=== PATIENT | male | born 1930 | race Caucasian/White ===

== ENCOUNTER 2016-04-06 19:16 | Inpatient (IN) | payer MEDICARE, OTHER ==
--- NOTE | ~2016-04-06 | CR72 ---
[facility] A Service of [facility] RADIOLOGY TEXT RESULTS PATIENT: FELISHA GODFREY LOCATION: [address] : [birth year] UNIT #: [id number] AGE: [address]: Leah Bledsoe MD SEX: M ORDER DR: [id number] [facility] [address] [facility]. [place], [place] [address] [id number] I MR#: [id number] Acc #: [id number] NAME: FELISHA GODFREY. : 1930 SEX: M STUDY DATE/TIME: 04/10/2016 5:17 UNIT: [facility] ROOM: [facility] STUDY DESCRIPTION: CR Chest Single View Portable Attending Physician: Leah Bledsoe M.D. Ordering Physician: Oswaldo Raman M.D. Primary Care Physician: Shankar Lang M.D. MEDICAL IMAGING REPORT This report is preliminary unless electronic signature is present EXAM Portable chest. HISTORY Shortness of breath with acute respiratory failure. COMPARISON 04/09/2016 TECHNIQUE A single AP view of the chest was obtained. FINDINGS Tubes and supporting devices are in satisfactory position. The heart and mediastinum are stable. Extensive bilateral interstitial infiltrates are again seen, worst at the left base. No new infiltrates are noted since the previous exam. The left upper lung alcocer show slight improvement. IMPRESSION Bilateral infiltrates are again noted. There is slight improvement in the left suprahilar area. Infiltrates elsewhere are unchanged. Dictated by... Carrington Wilson M.D. THIS IS AN ELECTRONICALLY VERIFIED REPORT Carrington Wilson M.D. at 04/10/2016 3:26 PM RLF/cecil TD: 04/10/2016 09:52 JOB #: [id number] [facility] A Service of [facility] RADIOLOGY TEXT RESULTS PATIENT: FELISHA GODFREY LOCATION: [address] : [birth year] UNIT #: [id number] AGE: [address]: Leah Bledsoe MD SEX: M ORDER DR: MEDICAL IMAGING REPORT COPY
--- NOTE | ~2016-04-06 | EKG ---
PATIENT: FELISHA GODFREY UNIT #: [id number] Ventricular Rate: 160 BPM Atrial Rate: 182 BPM QRS Duration: 90 ms Q-T Interval: 238 ms QTC Calculation(Bezet): 388 ms Calculated R [place]: 37 degrees Calculated T [place]uffin: 150 degrees Diagnosis Line: Atrial fibrillation with rapid ventricular Diagnosis Line: response with premature ventricular or aberrantly Diagnosis Line: conducted complexes Diagnosis Line: ST and T wave abnormality, consider lateral ischemia Diagnosis Line: Abnormal ECG Diagnosis Line: No previous ECGs available Diagnosis Line: Confirmed by LOGAN MOREIRA MD ([id number]) on Diagnosis Line: 04/07/2016 11:55:27 AM INTERPRETING MD: MERLE
--- NOTE | ~2016-04-06 | US140 ---
[facility] A Service of [facility] RADIOLOGY TEXT RESULTS PATIENT: FELISHA GODFREY LOCATION: [address]04[address]26 : [birth year] UNIT #: [id number] AGE: [address]: Leah Bledsoe MD SEX: M ORDER DR: [id number] [facility] [address] [facility] [place], [place] [address] [id number] I MR#: [id number] Acc #: [id number] NAME: FELISHA GODFREY. : 1930 SEX: M STUDY DATE/TIME: 04/09/2016 22:21 UNIT: [facility] ROOM: [facility] STUDY DESCRIPTION: [facility] Veins Unilat or Ltd Stdy Attending Physician: Leah Bledsoe M.D. Ordering Physician: Kajal Botello M.D. Primary Care Physician: Shankar Lang M.D. MEDICAL IMAGING REPORT This report is preliminary unless electronic signature is present EXAM Right upper extremity venous duplex HISTORY Right upper extremity swelling x 2 days. Currently on blood thinner. Shunt in the right upper extremity. Dialysis performed today. Patient bleeding. FINDINGS There is phasic spontaneous flow with respiration seen at the right internal jugular, subclavian, axillary, deep brachial, superficial brachial, proximal cephalic, distal cephalic, basilic veins. There is also compressibility of vein lumen of all of the aforementioned vessels. The right AV graft shunt is visualized, and is patent. IMPRESSION There is no evidence of a right upper extremity DVT on today's exam. Dictated by... Francis Penn M.D. THIS IS AN ELECTRONICALLY VERIFIED REPORT Francis Penn M.D. at 04/14/2016 8:11 AM MAYRA/betsy TD: 04/10/2016 23:00 JOB #: [id number] MEDICAL IMAGING REPORT [facility] A Service [facility] RADIOLOGY TEXT RESULTS PATIENT: FELISHA GODFREY LOCATION: [facility]04-26 : [birth year] UNIT #: [id number] AGE: [address]: Leah Bledsoe MD SEX: M ORDER DR: COPY
--- NOTE | ~2016-04-06 | OR ---
Unit #: [id number] #: [id number] Patient: FELISHA GODFREY [id number] [address] [address] [id number] I MR#: [id number] NAME: FELISHA GODFREY ROOM: [facility] Date of Procedure: 04/08/2016 Admission Date: 04/06/2016 Surgeon: Rayray Raman M.D. : 1930 Attending Physician: Leah Bledsoe M.D. Primary Care Physician: Shankar Lang M.D. PROCEDURE OPERATIVE NOTE PROCEDURE PERFORMED Diagnostic bronchoscopy with bronchial washing from the left lower lobe. INDICATION FOR PROCEDURE Flu, pneumonia and respiratory failure. PREMEDICATION 1. The patient is on Fentanyl drip. 2. Versed 2 mg IV times one. COMPLICATION None. FINDINGS A moderate amount of yellowish secretion in the right upper lobe and lingula. DESCRIPTION OF THE PROCEDURE An informed consent was obtained from the patient's after explaining the benefit and risk of this procedure. The patient was prepped and positioned in a proper way. Then, the bronchoscope was advanced through the ET tube and, at the level of the darwin, 1% lidocaine was instilled and the bronchoscope was advanced into the right main bronchus and the right upper lobe, right middle lobe and right lower lobe were examined which appeared normal except for a moderate amount of secretion in the right upper lobe which was aspirated with lavage. Then the bronchoscope was retracted and then (1) in the left main bronchus and the left upper lobe, lingula and left lower lobe were examined. The patient had only a moderate amount of also secretion in the lingula which was lavaged. Then, the bronchoscope was wedged at the level of the left lower lobe and washing was obtained which will be sent for microbiology and cytology. The patient tolerated his procedure well with no immediate complication. Dictated by... Rayray Raman M.D. EA/cruz TD: 04/08/2016 11:32 Unit #: [id number] #: [id number] Patient: FELISHA GODFREY JOB #: [id number] PROCEDURE OPERATIVE NOTE X RAYRAY CASTRO MD PROCEDURE OPERATIVE NOTE
--- NOTE | ~2016-04-06 | CO ---
Unit #: [id number] #: [id number] Patient: FELISHA GODFREY L [id number] [address] [address] [id number] I MR#: [id number] NAME: FELISHA GODFREY ROOM: [facility] Age: 85 Sex: M Admission Date: 04/06/2016 : 1930 Attending Physician: Leah Bledsoe M.D. Primary Care Physician: Shankar Lang M.D. Consultation Date: 04/08/2016 CONSULTATION REPORT REASON FOR CONSULTATION AFib with RVR, as well as pacemaker not capturing properly. HISTORY OF PRESENT ILLNESS The patient is intubated and sedated on the ventilator and there is no family present at the bedside to obtain any information from it at this time, therefore information was obtained from chart review and the medical records. The patient is an 85 white male who presented to the [facility] ED 04/06/2016 with complaints of shortness of breath. According to the records, the patient began with some sinus congestion and upper respiratory cold type symptoms for a couple of days. He then developed a cough and was started on antibiotics at home, but did not improve. He was seen by his home healthcare provider today for evaluation and the patient was noted to be febrile and he was instructed to come to the ER for further evaluation. In the ER the patient was noted to be hypoxic and ultimately needed to be intubated. There is some mention that the patient has had CABG surgery and stenting of coronary arteries as well, but there are no records available at this time for review. The patient's family apparently told the admitting physician that the other medical history the patient has is end stage renal disease and atrial fibrillation. PAST SURGICAL HISTORY 1. CABG. 2. Pacemaker. 3. Knee surgery. 4. Hip surgery. 5. Liver resection. SOCIAL HISTORY The patient's family states that he is a nonsmoker. No alcohol or illicit drug use. ALLERGIES No known allergies. HOME MEDICATIONS 1. Calcium acetate 660 p.o. t.i.d. 2. Calcium carbonate 1 tab p.o. daily. 3. Imdur 30 mg p.o. daily. 4. Plavix 75 mg p.o. daily. 5. Protonix 40 mg daily. 6. Vitamin D2 50,000 units weekly. 7. Toprol XL 12.5 mg p.o. daily. Unit #: [id number] #: [id number] Patient: FELISHA GODFREY 8. Aspirin 81 mg p.o. daily. FAMILY HISTORY Not obtained. REVIEW OF SYSTEMS See HPI. PHYSICAL EXAMINATION GENERAL: This physical exam was completed by Dr. Alfonso and therefore, I am purely dictating his findings. Telemetry shows AFib. NECK: No JVD. CHEST: Fine rhonchi at the right base, left lung is clear. HEART: Heart size is normal. Sounds from aortic valve are normal. A grade 1/6 systolic murmur. ABDOMEN: Soft, bowel sounds positive, nontender and nondistended. EXTREMITIES: No leg edema. DIAGNOSTIC STUDIES CARDIOLOGY STUDIES: EKG that shows AFib with an old inferior CO. IMAGING STUDIES: Chest x-ray - increased interstitial markings left lower lobe infiltrate. LABORATORY STUDIES: Blood culture - no growth after 24 hours. Lactic of 3.3. Urine culture no growth after 24 hours. MRSA screen was negative. BMP - sodium showed 138, potassium 4.8, chloride 107, CO2 17, glucose 150, BUN 34, creatinine 5.1. White count 6.8, hemoglobin 11.5, hematocrit 35.4, platelets 108. Strep pneumo antigen in the urine was negative. Legionella of the urine was negative. Influenza A and B, positive A, negative for influenza B. BNP of 737. Troponin of 0.19, then 0.16. IMPRESSION 1. Acute respiratory failure. 2. Left lower lobe pneumonia. 3. Mild fluid overload. 4. AFib, rate controlled. 5. Status post pacemaker. 6. EF of 55%. 7. Moderate pulmonary hypertension. 8. Chronic kidney disease on hemodialysis. PLAN For now, patient's heart rate is controlled as patient seemed to repeat with a Fentanyl bolus to control pain. Patient is also noted to be on some levophed due to some hypotension. Will try to titrate the Levophed off to keep a systolic blood pressure greater than 100. Will check a BNP to evaluate fluid balance. Nursing staff to call for results. Further recommendations pending current workup. Again please note that this was purely dictated for Dr. Naveed Alfonso, as I did not see the patient or evaluate the patient myself. Dictated by... Lillian Samuels APRN for Naveed Alfonso M.D. Unit #: [id number] #: [id number] Patient: FELISHA GODFREY/purnima TD: 04/09/2016 11:10 JOB #: [id number] CONSULTATION REPORT X X CONSULTATION REPORT
--- NOTE | ~2016-04-06 | HP ---
Unit #: [id number] #: [id number] Patient: FELISHA GODFREY [id number] [address] [address] [id number] I MR#: [id number] NAME: FELISHA GODFREY. ROOM: [facility] Age: 85 Sex: M Admission Date: 04/06/2016 : 1930 Attending Physician: Cesar Sierra M.D. Primary Care Physician: Shankar Lang M.D. HISTORY AND PHYSICAL CHIEF COMPLAINT Shortness of breath. HISTORY OF PRESENT ILLNESS The patient is an 85-year-old male who presents to [facility] emergency department with some shortness of breath. Apparently the patient began with some sinus congestion and some upper respiratory cold type symptoms a couple of days ago. He developed cough. He was started on antibiotics at home but failed to improve. He was seen today by his medical provider who seems him at home. At that point, the patient was febrile and the patient was instructed to come to the emergency department. In the emergency department, the patient was noted to be significantly hypoxic and was ultimately intubated. As a result, no further history is able to be obtained. PAST MEDICAL HISTORY Per family, the patient has end stage renal disease, coronary artery disease, status post coronary artery bypass grafting and stents, atrial fibrillation. PAST SURGICAL HISTORY 1. The aforementioned bypass grafts. 2. Pacemaker placement. 3. Knee surgery. 4. Hip surgery. 5. Liver resection. SOCIAL HISTORY The patient lives at home with family. No tobacco, alcohol or illicit drug use. FAMILY HISTORY Unable to obtain. ALLERGIES No known drug allergies. HOME MEDICATIONS 1. Calcium acetate 667 mg, one p.o. t.i.d. 2. Calcium carbonate, one p.o. daily. 3. Imdur ER 30 mg p.o. daily. 4. Plavix 75 mg daily. 5. Protonix 40 mg daily. 6. Vitamin D2 50,000 units weekly. Unit #: [id number] #: [id number] Patient: FELISHA GODFREY 7. Toprol XL 12.5 mg p.o. daily. 8. Aspirin 81 mg daily. REVIEW OF SYSTEMS Unable to obtain. PHYSICAL EXAMINATION VITAL SIGNS: Temperature 103.5, pulse 105, blood pressure 101/58. GENERAL: This is an 85-year-old male intubated, sedated on a ventilator. HEENT: Pupils equally round. Normocephalic, atraumatic. NECK: No JVD, no lymphadenopathy. CARDIAC: Regular rate and rhythm. No murmurs, gallops or rubs. LUNGS: Clear to auscultation bilaterally with equal air entry bilaterally. ABDOMEN: Nontender, nondistended. Positive bowel sounds. EXTREMITIES: No clubbing or cyanosis with trace bilateral lower extremity edema. Warm and dry. PSYCH: Unable to obtain. NEUROLOGICAL: The patient is sedated on a ventilation and unable to obtain. SKIN: No rashes, bruises or ulcers. MUSCULOSKELETAL: No muscle swelling, no joint swelling. DIAGNOSTIC STUDIES LABORATORY: Creatinine is 3.4. White count is normal at 8.9. Hemoglobin is normal at 14.2 with an MCV of 103.7. UA seems consistent with urinary tract infection. IMAGING: Chest x-ray is read as bibasilar fibrosis and scarring, left greater than right. No evidence of active disease. ASSESSMENT AND PLAN 1. Septic shock: The patient's blood pressure has dropped as low as 60 systolic. He has been started on Levophed and has been started on 30 mL/kg of fluid. Initial lactic acid is 2.8 with repeat ordered. 2. Pneumonia: The chest x-ray was not read as showing pneumonia but given the patient's description of symptoms and fever, concern for possible pneumonia. The patient has been started on antibiotics. 3. Urinary tract infection: The patient had a very small amount of urine available. UA has been tested and does seem to be consistent with urinary tract infection. This could absolutely be the cause of the patient's septic shock but the patient's preceding symptoms of sinus congestion and cough and increasing shortness of breath are, as mentioned above, concerning for pneumonia. The patient has been covered with antibiotics which should treat a urinary tract infection as well. 4. 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 5. Prophylaxis: The patient has been started on Lovenox. Dictated by Cesar Sierra M.D. EDUARDO/df Unit #: [id number] #: [id number] Patient: FELISHA GODFREY TD: 04/07/2016 07:04 JOB #: [id number] HISTORY AND PHYSICAL X Cesar Sierra MD HISTORY AND PHYSICAL
--- NOTE | ~2016-04-06 | EKG ---
PATIENT: FELISHA GODFREY UNIT #: [id number] Ventricular Rate: 117 BPM Atrial Rate: 62 BPM QRS Duration: 96 ms Q-T Interval: 328 ms QTC Calculation(Bezet): 457 ms Calculated R [place]: 23 degrees Calculated T [place]: -18 degrees Diagnosis Line: Atrial fibrillation with rapid ventricular Diagnosis Line: response with aberrantly conducted complexes Diagnosis Line: Abnormal ECG Diagnosis Line: When compared with ECG of 06-APR-2016 17:54, Diagnosis Line: (unconfirmed) Diagnosis Line: Questionable change in initial forces of Inferior Diagnosis Line: leads Diagnosis Line: ST no longer depressed in Anterior leads Diagnosis Line: Inverted T waves have replaced nonspecific T wave Diagnosis Line: abnormality in Inferior leads Diagnosis Line: Confirmed by LOGAN MOREIRA MD ([id number]) on Diagnosis Line: 04/07/2016 11:56:44 AM INTERPRETING MD: MERLE
--- NOTE | ~2016-04-06 | CR72 ---
[facility] A Service of [facility] RADIOLOGY TEXT RESULTS PATIENT: FELISHA GODFREY LOCATION: [facility] : [birth year] UNIT #: [id number] AGE: [address]: Cesar Sierra MD SEX: M ORDER DR: [id number] [facility] [address] [facility]. [place], [place] [address] [id number] MR#: [id number] Acc #: [id number] NAME: FELISHA GODFREY. : 1930 SEX: M STUDY DATE/TIME: 04/06/2016 19:01 UNIT: [facility] ROOM: STUDY DESCRIPTION: CR Chest Single View Portable Ordering Physician: Salvador العراقي M.D. Primary Care Physician: Shankar Lang M.D. MEDICAL IMAGING REPORT This report is preliminary unless electronic signature is present EXAM Frontal chest 04/06/2016 INDICATIONS 85-year-old male shortness of air, atrial fibrillation symptoms 4 days. TECHNIQUE Frontal chest compared with 08/14/2015. FINDINGS ET tube tip in good position approximately 5.5 cm above the level of the darwin. Dual-lead left-sided pacemaker is unchanged in this patient status post median sternotomy. The heart is borderline in size and stable. There is probable mild vascular congestion. There is fibrosis and scarring in both lung bases. It is slightly worse on the left on the right. When allowing for technical factors, there has probably not been significant interval change. No definite superimposed active disease. No pneumothorax. IMPRESSION 1. ET tube tip in good position above the darwin. No pneumothorax. 2. Borderline cardiac size with interval development of probable vascular congestion and interstitial edema. 3. There is bibasilar fibrosis and scarring, left greater than right. Chronic appearing pleural thickening or chronic pleural fluid on the left. No distinct evidence of new active disease when allowing for technical factors. STAT * RESULT [facility] A Service of [facility] RADIOLOGY TEXT RESULTS PATIENT: FELISHA GODFREY LOCATION: [facility] [id number] : [birth year] UNIT #: [id number] AGE: [address]: Cesar Sierra MD SEX: M ORDER DR: Dictated by... Gilbert Alvares M.D. THIS IS AN ELECTRONICALLY VERIFIED REPORT Gilbert Alvares M.D. at 04/06/2016 11:26 PM FRANKY/nadira TD: 04/06/2016 19:59 JOB #: [id number] MEDICAL IMAGING REPORT COPY
--- NOTE | ~2016-04-06 | DS ---
Unit #: [id number] #: [id number] Patient: FELISHA GODFREY [id number] [address] [address] [id number] I MR#: [id number] NAME: FELISHA GODFREY ROOM: [facility] Age: 85 Sex: M Admission Date: 04/06/2016 : 1930 Discharge Date: 04/12/2016 Attending Physician: Leah Bledsoe M.D. Primary Care Physician: Shankar Lang M.D. DISCHARGE SUMMARY ADDENDUM Patient was made appropriate measures by family as previously noted and on April 12, 2016, at 0359 in the morning. Dictated by... Leah Bledsoe M.D. KEH/risa TD: 04/15/2016 07:48 JOB #: [id number] DISCHARGE SUMMARY X Leah Bledsoe MD X DISCHARGE SUMMARY
--- NOTE | ~2016-04-06 | CR72 ---
[facility] A Service of [facility] RADIOLOGY TEXT RESULTS PATIENT: FELISHA GODFREY LOCATION: [address] : [birth year] UNIT #: [id number] AGE: [address]: Leah Bledsoe MD SEX: M ORDER DR: [id number] [facility] [address] [place], [place] [address] [id number] I MR#: [id number] #: [id number] NAME: FELISHA GODFREY. : 1930 SEX: M STUDY DATE/TIME: 04/08/2016 2:37 UNIT: [facility] ROOM: [facility] STUDY DESCRIPTION: CR Chest Single View Portable Attending Physician: Leah Bledsoe M.D. Ordering Physician: Oswaldo Raman M.D. Primary Care Physician: Shankar Lang M.D. MEDICAL IMAGING REPORT This report is preliminary unless electronic signature is present EXAM Portable AP view of the chest. COMPARISON April 07, 2016; April 06, 2016; and August 14, 2015. INDICATIONS 85-year-old male with respiratory failure requiring ventilatory support for 2 days. Influenza positive activity. History of coronary artery disease and atrial fibrillation. FINDINGS AND IMPRESSION Endotracheal tube tip terminates approximately 6.2 cm above the darwin. Feeding tube terminates in the gastric body. Dual lead left chest pacemaker device appears stable without evidence of complication. Median sternotomy wires appear intact. Changes of CABG again noted. Cardiomediastinal silhouette is within normal limits. No pneumothorax or significant pleural effusion. There may be minimal trace bilateral pleural effusion not changed from comparison. Grossly stable bibasilar opacities, possibly chronic. Calcified granuloma in the right midlung. Dictated by... Shankar Castaneda M.D. THIS IS AN ELECTRONICALLY VERIFIED REPORT Shankar Castaneda M.D. at 04/13/2016 9:00 PM BLM/pc TD: 04/08/2016 09:44 JOB #: [id number] MEDICAL IMAGING REPORT COPY
--- NOTE | ~2016-04-06 | FU ---
[facility] Nutrition Therapy DATE: 04/10/16 Patient: FELISHA GODFREY Physician: MORCAR Address: [address] [place] [address] Room/Bed: [address], Zip: [place] [address] Admit Date: 04/06/16 Date of : [birth year] Height: 5 10 Weight: 156 71 NUTRITION MONITORING/FOLLOW-UP: Reason: Enteral nutrition follow up Anthropometrics: Ht: 70" Wt: 66 kg BMI: 20.9 IBW: 75.4 kg, 88% IBW Wt 04/10: 71 kg Labs: Cl- 99 Gluc 125 BUN 37 Creat 3.8 Ca++ 8.2 Accuchecks 114 GFR 16.1 Meds: Mag-ox, versed, NaCl, protonix, senokot, fentanyl, lopressor, miralax, solu-medrol I&O's: 3112/5, last BM 04/10 Skin: Redness to coccyx Bruising/ thin skin BUE/ Hands Edema: 2+ right arm 1+ right hand Estimated Nutrition Needs: [id number] kcals (28-32 kcals/kg) 79-99 grams protein (1.2-1.5 grams/kg) Assessment: Chart reviewed, events noted. Pt remains intubated in the ICU. Pt is tolerating enteral nutrition at goal rate per RN report. Per pump history, the pt received 90% goal volume of enteral nutrition over the past 24 hrs. Minimal residuals noted by RN (50-75 cc). Previous nutrition diagnosis resolved, see new diagnosis. Dx: Inadequate protein-energy intake RT clinical condition AEB NPO status, RD consult, DHT in place. -RESOLVED Inadequate oral intake RT clinical condition AEB pt receiving enteral nutrition, unable to consume nutrition PO. Intervention: 1. Enteral nutrition Monitoring, Evaluation and Goals: IN PROGRESS 1. Enteral nutrition; continue to provide >80% goal volume x 24 hrs 2. Labs; WNL 3. Weight; prevent unintentional weight loss 4. Skin; prevent breakdown [facility] Nutrition Therapy DATE: 04/10/16 Patient: FELISHA GODFREY Physician: VITORCAR Address: [address] [place] [address] Room/Bed: [address], Zip: [place] [address] Admit Date: 04/06/16 Date of : [birth year] Height: 5 10 Weight: 156 71 Recommendations: 1. Continue enteral nutrition with Nepro @ 50 mL/hr as tolerated. 2. If the pt is extubated, recommend diet advancement per PROCUREMENT MANAGER recommendations with further restrictions to be determine based on PO intake. Pt would benefit from a 2 gram Na+ diet if intake is adequate. Status: Pt is at moderate nutritional risk. RD will continue to follow. Respectfully, FARIDEH TAPIA RD, LD Food and Nutritional Services [facility] cc: client file
--- NOTE | ~2016-04-06 | CO ---
Unit #: [id number] #: [id number] Patient: FELISHA GODFREY [id number] [address] [place], [place] [address] [id number] I MR#: [id number] NAME: FELISHA GODFREY ROOM: [facility] Age: 85 Sex: M Admission Date: 04/06/2016 : 1930 Attending Physician: Leah Bledsoe M.D. Primary Care Physician: Shankar Lang M.D. Consultation Date: 04/07/2016 CONSULTATION REPORT REASON FOR CONSULT Dialysis needs. HISTORY OF PRESENT ILLNESS Mr. Godfrey is an 85-year-old male who was brought into the emergency room yesterday with shortness of breath. Patient was intubated for respiratory distress and is now on the ventilator here in the unit and on some Levophed for blood pressure support. All of the history was obtained from the chart as the patient is currently sedated on the ventilator. He apparently had been complaining about some upper respiratory symptoms for several days with a cough and had not improved with an attempt at antibiotics at his assisted living facility. Patient did get dialysis yesterday according to the nurse at dialysis facility. He gets dialysis on Wednesday, Wednesday, Wednesday at [facility]. Patient is currently stable on the ventilator. He is requiring an FIO2 of 40% and is in no respiratory distress this morning, no swelling issues. He is noted to have a right arm fistula for dialysis. PAST MEDICAL HISTORY Past medical history is significant for an end-stage renal disease, coronary artery disease, afib and valvular heart disease. PAST SURGICAL HISTORY He has had a CABG. He has had a bovine aortic valve replacement and appendectomy, tonsillectomy, pacemaker, back surgery, liver surgery, right knee replacement and right arm shunt. HOME MEDICATIONS Home meds per Dr. Sierra: 1. Calcium acetate t.i.d. 2. Calcium carbonate daily. 3. Imdur 30 mg daily. 4. Plavix 75 mg daily. 5. Protonix 40 mg daily. 6. Vitamin D weekly. 7. Toprol-XL 12.5 mg daily. 8. Baby aspirin daily. ALLERGIES No known drug allergies. FAMILY HISTORY Family history is unable to be obtained. Unit #: [id number] #: [id number] Patient: FELISHA GODFREY SOCIAL HISTORY Patient does have family in from [place]. He lives in an assisted living facility. There are no reports of tobacco, alcohol or drug use. REVIEW OF SYSTEMS A complete 12-point review of systems was completed with the above findings. Further review of systems was simply unable to be obtained secondary to the patient being sedated and on the ventilator. His fever is down. Again there is no respiratory distress. No reports of hemoptysis. No rash is reported. No swelling reported. Unless otherwise indicated the review of systems was not able to be obtained. PHYSICAL EXAMINATION VITAL SIGNS: The patient is afebrile, pulse 75, respiratory rate 20, blood pressure 123/34, was a low as 58/37 on admission. GENERAL: In general this is an elderly 85-year-old male, sedated on the ventilator, currently in no acute distress. HEENT EXAM: Head is atraumatic/normocephalic. Eyes show pink conjunctivae with no scleral icterus. No nosebleed. The patient is orally intubated. NECK: Shows no rigidity. HEART: Heart is regular rate with soft murmur present. No rub appreciated. LUNGS: Lungs have scattered rhonchi present bilaterally with no wheezing. Breathing is unlabored on the ventilator. ABDOMEN: Soft, nontender, bowel sounds are present. EXTREMITIES: No lower extremity cyanosis or pitting edema. SKIN: Skin is dry, without rashes. MUSCULOSKELETAL EXAM: No joint effusion is noted. VASCULAR EXAM: Patient has a right arm fistula in place with good bruit and thrill. DIAGNOSTIC STUDIES LABORATORY: Chemistry this morning noteworthy for a potassium of 3.8, bicarb of 20, BUN and creatinine were 22 and 3.7 respectively, CBC showed a white count of 8, hemoglobin 10.8, platelet count 101. ABG this morning pH of 7.467, pCO2 24.8, pO2 172, bicarb 18. Lactic acid level was down to 1.9. Influenza A screen was positive. Urinalysis was noteworthy for numerous white blood cells and bacteria. Admission lactic acid 2.8. BNP yesterday was 737. Admission potassium was 5.4. IMAGING: A chest x-ray was noteworthy for some probable vascular congestion and possible pneumonia. ASSESSMENT AND PLAN 1. End-stage renal disease. Patient got dialysis yesterday and we will reschedule his dialysis treatment for tomorrow as there is no urgency for any dialysis today and he remains hypotensive requiring a pressor. 2. Urinary tract infection being covered with antibiotics with culture pending. 3. Hyperkalemia. This is improved with recheck labs this morning. 4. Influenza with Tamiflu ordered. 5. Respiratory failure with pneumonia on antibiotics. 6. Paroxysmal atrial fibrillation. Wonder if Cardiology needs to see? Will defer to admitting. 7. History of coronary artery disease and coronary artery bypass graft with bovine aortic valve replacement. Unit #: [id number] #: [id number] Patient: FELISHA GODFREY I would like to thank Dr. Sierra for this consult and the opportunity to participate in evaluation and care of Mr. Godfrey. Dictated by... Antwan Prieto Jr., M.Fernando. KATHERINE/hiro TD: 04/07/2016 15:48 JOB #: [id number] CONSULTATION REPORT X Antwan Prieto MD X CONSULTATION REPORT
--- NOTE | ~2016-04-06 | CR72 ---
[facility] A Service of [facility] & [facility] RADIOLOGY TEXT RESULTS PATIENT: FELISHA GODFREY LOCATION: [place] [address] : [birth year] UNIT #: [id number] AGE: [address]: Leah Bledsoe MD SEX: M ORDER DR: [id number] [facility] [address] [facility]. [place], [place] [address] [id number] I MR#: [id number] Acc #: [id number] NAME: FELISHA GODFREY : 1930 SEX: M STUDY DATE/TIME: 04/07/2016 6:14 UNIT: [facility] ROOM: [facility] STUDY DESCRIPTION: CR Chest Single View Portable Attending Physician: Cesar Sierra M.D. Ordering Physician: Cesar Sierra M.D. Primary Care Physician: Shankar Lang M.D. MEDICAL IMAGING REPORT This report is preliminary unless electronic signature is present EXAM Portable chest 04/07 INDICATIONS Respiratory failure. Ventilator patient. FINDINGS AP portable chest compared with 04/06/2016. Feeding tube in the proximal gastric body. ET tube mid trachea. Heart size stable status post sternotomy. Coarse infiltrates in the left mid to lower lung and right base are stable. No pneumothorax is seen. Dictated by... Carrington Diaz Jr., M.D. THIS IS AN ELECTRONICALLY VERIFIED REPORT Carrington Diaz Jr., M.D. at 04/07/2016 3:50 PM JULIETAK/ariela TD: 04/07/2016 09:12 JOB #: [id number] MEDICAL IMAGING REPORT COPY
--- NOTE | ~2016-04-06 | CR72 ---
[facility] A Service of [facility] & [facility] RADIOLOGY TEXT RESULTS PATIENT: FELISHA GODFREY LOCATION: [address] : [birth year] UNIT #: [id number] AGE: [address]: Leah Bledsoe MD SEX: M ORDER DR: [id number] [facility] [address] [facility]. [place], [place] [address] [id number] I MR#: [id number] Acc #: [id number] NAME: FELISHA GODFREY. : 1930 SEX: M STUDY DATE/TIME: 04/09/2016 5:35 UNIT: [facility] ROOM: [facility] STUDY DESCRIPTION: CR Chest Single View Portable Attending Physician: Leah Bledsoe M.D. Ordering Physician: Oswaldo Raman M.D. Primary Care Physician: Shankar Lang M.D. MEDICAL IMAGING REPORT This report is preliminary unless electronic signature is present EXAM Portable chest HISTORY On a ventilator, shortness of air. COMPARISON 04/08/2016. FINDINGS Portable view of the chest demonstrates tubes and lines in satisfactory position unchanged. Slight decrease in lung volumes. Continued diffuse lung disease with coarse parenchymal markings throughout both lungs most prominent within the lung bases. This may reflect chronic fibrosis with superimposed edema. Blunting of the right and left CP angles suggests small bilateral pleural effusion versus chronic pleural thickening. Heart size within normal limits in this patient post CABG. Pacemaker noted. No visible pneumothorax. Dictated by... Radha Fuller M.D. THIS IS AN ELECTRONICALLY VERIFIED REPORT Radha Fuller M.D. at 04/09/2016 8:10 AM AMY/norman TD: 04/09/2016 08:04 JOB #: [id number] MEDICAL IMAGING REPORT COPY
--- NOTE | ~2016-04-06 | CR7 ---
[facility] A Service of [facility] & [facility] RADIOLOGY TEXT RESULTS PATIENT: FELISHA GODFREY LOCATION: [address] : [birth year] UNIT #: [id number] AGE: [address]: Leah Bledsoe MD SEX: M ORDER DR: [id number] [facility] [address]. [place], [place] [address] [id number] I MR#: [id number] Acc #: [id number] NAME: FELISHA GODFREY : 1930 SEX: M STUDY DATE/TIME: 04/07/2016 6:17 UNIT: [facility] ROOM: [facility] STUDY DESCRIPTION: CR Abdomen Single AP View Attending Physician: Cesar Sierra M.D. Ordering Physician: Jordno Barahona M.D. Primary Care Physician: Shankar Lang M.D. MEDICAL IMAGING REPORT This report is preliminary unless electronic signature is present EXAM KUB 04/07 INDICATION Feeding tube placement today. FINDINGS Supine view of the abdomen was obtained. Tip of a flexible feeding tube is noted in the proximal gastric body. Bowel gas pattern is nonspecific but nonobstructive. Consider advancing the tube 5.0-10.0 cm. Dictated by... Carrington Diaz Jr., M.D. THIS IS AN ELECTRONICALLY VERIFIED REPORT Carrington Diaz Jr., M.D. at 04/07/2016 3:49 PM ANIRUDH/fiordaliza TD: 04/07/2016 09:09 JOB #: [id number] MEDICAL IMAGING REPORT COPY
--- NOTE | ~2016-04-06 | CO ---
Unit #: [id number] #: [id number] Patient: FELISHA GODFREY [id number] [address] [address] [id number] I MR#: [id number] NAME: FELISHA GODFREY. ROOM: [facility] Age: 85 Sex: M Admission Date: 04/06/2016 : 1930 Attending Physician: Leah Bledsoe M.D. Primary Care Physician: Shankar Lang M.D. Consultation Date: 04/07/2016 CONSULTATION REPORT REASON FOR CONSULT ICU management. HISTORY OF PRESENT ILLNESS This is an 85-year-old male with past medical history significant for end-stage renal, who presented to the emergency room with high fever and shortness of breath. Per son, patient has been sick for the last few days with upper respiratory symptoms, sinus congestion and cough. Patient was placed on some antibiotics but he failed to improve. Patient went today to the dialysis center and then he was found to have a fever of 104 and he was significantly hypoxic so he was transferred to our hospital where he was intubated in the ER. Patient currently is on the ventilator and comfortable with sedation. He is not on pressors. Per son, patient's health has been declining over the last five to six months and he has been weaker and needing assistance for ambulation. REVIEW OF SYSTEMS Unable to obtain from the patient due to his condition. PAST MEDICAL HISTORY 1. End-stage renal disease. 2. Coronary artery disease. 3. Afib. 4. Hypertension. PAST SURGICAL HISTORY 1. Bypass graft. 2. Pacemaker placement. 3. Knee surgery. 4. Hip surgery. 5. Liver resection. SOCIAL HISTORY Patient lives with his family at home, no history of alcohol, drug abuse or smoking. FAMILY HISTORY Unable to obtain. Unit #: [id number] #: [id number] Patient: FELISHA GODFREY ALLERGIES No known drug allergy. HOME MEDICATION 1. Aspirin. 2. Toprol-XL. 3. Vitamin D. 4. Protonix. 5. Plavix. 6. Imdur. 7. Calcium. PHYSICAL EXAMINATION GENERAL: The patient is intubated and sedated. VITAL SIGNS: Blood pressure 115/62. Respiratory rate 28. HEENT: Normocephalic and atraumatic. PERRLA. EOMI. NECK: Supple. No JVD. No lymphadenopathy. CHEST: Bilateral fine rhonchi with scattered wheezing. HEART: S1, S2 with systolic murmur. ABDOMEN: Soft, nontender. Bowel sound is positive. No hepatosplenomegaly. EXTREMITIES: No edema or cyanosis. SKIN: No rashes. DEGREASER OPERATOR: Patient is intubated and sedated. No focal motor/sensory deficits. DIAGNOSTIC STUDIES LABORATORY: Creatinine 3.7, bicarb is 20, magnesium 1.9, hemoglobin 10.8, platelets 101. IMAGING: Chest x-ray is consistent with pneumonia. ASSESSMENT 1. Acute hypoxic respiratory failure. 2. Flu/pneumonia, HCAP. 3. End-stage renal disease. 4. Coronary artery disease. 5. Chronic anemia. PLAN 1. Patient is critical. Will continue him on the vent support. 2. Will reassess for extubation daily. 3. Bronchoscopy in the morning. 4. Broad-spectrum antibiotics pending culture. 5. Tamiflu x5 to 10 days. 6. Bronchodilator and mucolytics. 7. N.p.o. for now but likely will be assessed for tube feeding. I discussed with the son and daughter in detail at bedside. Critical care time spent on this patient was 36 minutes. Dictated by... Rayray Raman M.D. Unit #: [id number] #: [id number] Patient: FELISHA GODFREY EA/cf TD: 04/07/2016 22:55 JOB #: [id number] CONSULTATION REPORT X RAYRAY CASTRO MD CONSULTATION REPORT
--- NOTE | ~2016-04-06 | A ---
[facility] Nutrition Therapy DATE: 04/07/16 Patient: FELISHA GODFREY Physician: VITORCAR Address: [address] [place] [address] Room/Bed: [address], Zip: [place] [address] Admit Date: 04/06/16 Date of : [birth year] Height: 5 10 Weight: 145 66 NUTRITIONAL ASSESSMENT: REASON: NPO status in ICU 85 yo male admitted for SOB, Flu, possible sepsis, PNA, UTI PMH: ESRD on HD, CAD, s/p CABG and pacemaker, Afib, liver resection Anthropometrics: Ht: 5'10" Adm wt: 66 kg BMI: 20.9 IBW: 75.4 kg, 88% IBW Labs: Gluc 136 Creat 3.7 Ca++ 7.8 GFR 16.6 BNP 737 Meds: Levophed, fentanyl, senokot, miralax, solu-medrol, D5%, NaCl I/O & Bowel function: 1010/0, last BM unknown Skin Integrity: Scar scattered Edema: None noted Estimated Nutrition Needs: 6833-6991 kcals (28-32 kcals/kg) 79-99 grams protein (1.2-1.5 grams/kg) Assessment: Chart reviewed, events noted. 85 yo male admitted for SOB, flu, PNA now intubated in the ICU. Pt has h/o ESRD on HD, with HD scheduled for tomorrow. RN requested enteral nutrition recommendations. Pt has a DHT in place per RN report. Pt to have bronch tomorrow. Pt has increased protein needs due to admission diagnoses and PMH. Please see recommendations below. Dx: Inadequate protein-energy intake RT clinical condition AEB NPO status, RD consult, DHT in place. Intervention: 1. Enteral nutrition Monitoring, Evaluation and Goals: 1. Enteral nutrition; provide >80% goal volume x 24 hrs 2. Labs; WNL 3. Weight; prevent unintentional weight loss 4. Skin; prevent breakdown Recommendations: [facility] Nutrition Therapy DATE: 04/07/16 Patient: FELISHA GODFREY Physician: YULISSA Address: [address] [place] [address] Room/Bed: [address], Zip: [place] [address] Admit Date: 04/06/16 Date of : [birth year] Height: 5 10 Weight: 145 66 1. Once medically feasible, start enteral nutrition with Nepro @ 20 mL/hr. Increase by 10 mL q 8 hrs as tolerated to goal of 50 mL/hr. This will provide: 2160 kcals/ 97 grams protein/ 876 mL free H20 2. Monitor for symptoms of intolerance and residuals per protocol. 3. If the pt is extubated, recommend DATA MANAGEMENT ASSOCIATE evaluation to determine if the pt can safely tolerate PO intake. Pt is at moderate-severe nutritional risk. RD will follow hospital course. Respectfully, FARIDEH TAPIA RD, LD [employer] [facility] [employer] cc: client file
--- NOTE | ~2016-04-06 | DS ---
Unit #: [id number] #: [id number] Patient: FELISHA GODFREY [id number] [address] [address] [id number] I MR#: [id number] NAME: FELISHA GODFREY. ROOM: [facility] Age: 85 Sex: M Admission Date: 04/06/2016 : 1930 Discharge Date: 04/12/2016 Attending Physician: Leah Bledsoe M.D. Primary Care Physician: Shankar Lang M.D. DISCHARGE SUMMARY PRINCIPAL DIAGNOSES 1. Septic shock secondary to influenza A. 2. Acute influenza A. 3. Left lower lobe healthcare-associated pneumonia. 4. Acute hypoxic respiratory failure. 5. End-stage renal disease maintained on hemodialysis Wednesday, Wednesday, Wednesday. 6. Atrial fibrillation with rapid ventricular response. 7. Moderate pulmonary hypertension. 8. Thrombocytopenia. 9. Nonsustained ventricular tachycardia. 10. History of bioprosthetic aortic valve. CONSULTANTS 1. Dr. Raman, Pulmonology. 2. Dr. Alfonso, Cardiology. 3. Dr. Prieto, Nephrology. PROCEDURES 1. Two-dimensional echocardiogram on April 07, 2016, with ejection fraction of 50% to 55%, moderate septal hypokinesis noted, moderately dilated left atrium noted, mild concentric left ventricular hypertrophy, severe tricuspid regurgitation noted, calcified mitral annulus with moderate mitral regurgitation, right ventricular systolic pressure of 58 mmHg. 2. Chest x-ray on April 06, 2016 with findings of vascular congestion and interstitial edema. Bibasilar fibrosis and scarring, left greater than right, is noted. Chronic pleural thickening noted. 3. Chest x-ray on April 07, 2016 with essentially no changes. There are coarse infiltrates in the left base. 4. Bronchoscopy on April 08, 2016. CLINICAL HISTORY AND HOSPITAL COURSE Mr. Weldon is an 85-year-old male brought to the emergency department by his family with increasing shortness of breath. Please refer to H and P for further details. The patient was found to be febrile and was significantly hypoxic requiring intubation. He was swabbed for fluid and found to be positive for influenza A. Unfortunately in the emergency department, he developed significant hypotension requiring pressor therapy and he was subsequently admitted to the ICU. The patient was placed on aggressive IV hydration per sepsis protocol in addition to pressor therapy. Dr. Raman was consulted regarding ventilatory management. The patient was also placed on broad-spectrum antibiotics in Unit #: [id number] #: [id number] Patient: FELISHA GODFREY addition to Tamiflu due to concern that he had associated perhaps MRSA pneumonia. The patient has been maintained on aggressive antibiotic therapy and Tamiflu but unfortunately continues to have some significant hypotension. Please refer to below. In regard to patient's respiratory failure, again this was managed by Dr. Raman. Trials at weaning resulted in very poor tidal volume and patient is being maintained on ventilator for now until family arrives. Dr. Alfonso was consulted given patient has chronic atrial fibrillation and subsequently developed atrial fibrillation with RVR. He was maintained on amiodarone drip and has now been transitioned to amiodarone via [place]. The patient is not on anticoagulation due to a history of significant GI bleed while on anticoagulation in the past. He has been maintained, however, on prophylactic heparin. Dr. Prieto was consulted given patient's renal disease, and he did dialyze as scheduled on Wednesday and Wednesday. Goals of care were discussed with the patient's family. The patient in the emergency department agreed to intubation but his living will stated that he wished to be DNR. He has been unable to titrate from pressor therapy and even if he was able to survive this current illness, his rehabilitation for this illness would be prolonged and there is significant concern that he would not be able to return to his previous level of function. When this was all discussed with extensively, she has opted for patient to be terminally extubated with comfort measures and this will happen later this evening. Further hospital course with time of to be dictated as an addendum. Dictated by... Leah Bledsoe M.D. BRYSON/judith TD: 04/13/2016 09:05 JOB #: [id number] DISCHARGE SUMMARY X Leah Bledsoe MD DISCHARGE SUMMARY
[2016-04-06 18:29] LABS: BASOPHIL# 0.1 X10e3 (0-0.3); BASOPHIL% 0.7 % (0-2.5); EOSINOPHIL% 0.3 % (0.0-7.0); HEMATOCRIT 44.1 % (38.0-50.0); HEMOGLOBIN 14.2 gm/dL (13.0-16.0); LYMPHOCYTE# 0.7 X10e3 (1.0-3.5); LYMPHOCYTE% 8.3 % (17.0-45.0); MEAN CELL VOLUME 103.7 FL (83-96); MEAN CORPUSCULAR HEMOGLOBIN 33.4 PG (28-34); MEAN CORPUSCULAR HGB CONC 32.2 g/dL (30-36); MEAN PLATELET VOLUME 8.5 FL (6.5-11.5); MONOCYTE# 0.5 X10e3 (0-1.0); MONOCYTE% 5.6 % (3.0-12.0); NEUTROPHIL# 7.6 X10e3 (1.5-7.1); NEUTROPHIL% 85.1 % (40-75); PLATELET COUNT 131 X10e3 (140-420); RED BLOOD COUNT 4.25 X10e (3.90-5.60); WHITE BLOOD COUNT 8.9 X10e3 (4.0-10.5)
[2016-04-06 18:30] LABS: DIFF IND NO
[2016-04-06 18:40] LABS: POC - CKMB 5.9 ng/mL (0.0-7.9); POC - TROPONIN 0.19 ng/mL (<=0.05)
[2016-04-06 18:45] LABS: INR 1.1; PARTIAL THROMBOPLASTIN TIME 33.6 SECONDS (23.5-31.3); PROTHROMBIN TIME (PATIENT) 11.4 SECONDS (9.6-11.5)
[2016-04-06 18:46] LABS: ALBUMIN SERUM 4.2 g/dL (3.5-5.0); BILIRUBIN, DIRECT 0.2 mg/dL (0.0-0.2); BILIRUBIN,INDIRECT 0.4 mg/dL (0.0-0.9); BILIRUBIN,TOTAL 0.6 mg/dL (0.2-2.0); BUN/CREATININE RATIO 4.7; CALCIUM SERUM 9.1 mg/dL (8.4-10.2); CREATININE SERUM 3.4 mg/dL (0.6-1.4); GLOM FILT RATE Estimated 18.3 mL/min (>60); MAGNESIUM 1.9 mg/dL (1.6-3.0); POTASSIUM 5.4 mmol/L (3.5-5.1); PROTEIN TOTAL SERUM 9.2 g/dL (6.0-8.3)
[2016-04-06 18:54] LABS: ARTERIAL BLD GAS O2 SATURATION 98.7 % (90.0-100.0); ARTERIAL BLOOD GAS CARBOXY HB 0.3 %sat (0.0-9.0); ARTERIAL BLOOD GAS HCO3 20.7 mmol/L; ARTERIAL BLOOD GAS MET HB 1.1 %sat (0.0-2.0); ARTERIAL BLOOD GAS PCO2 31.7 mmHg (35.0-45.0); ARTERIAL BLOOD GAS pH 7.423 (7.350-7.450)
[2016-04-06 18:56] LABS: ARTERIAL BLOOD GAS ART SITE LEFT BRACHIAL; ARTERIAL BLOOD GAS DELIVERY VENT; ARTERIAL BLOOD GAS VENT MODE AC; ARTERIAL DRAW? YES
[~2016-04-06 19:16] MED LIST: AMIODARONE PO; ASPIRIN PO; ASPIRIN81 M2 PO; BUMEX PO; CALCIUM ACETAT667 M1 PO; CALCIUM1 TAB.CHEW PO; CHEWABLE ASPIRI81 MG PO; CLOPIDOGREL75 MG PO; COUMADIN PO; IMDUR-ER30 M1 PO; KCL PO; LATANOPROST2.5 ML OP; MOBIC PO; PROTONIX PO; TOPROL XL PO; VITAMIN D1000 UNI1 PO; VITAMIN D250000 UNIT PO; [UNRECOGNIZED DRUG - OTHER] PO
[2016-04-06 22:21] LABS: POC - CKMB 1.2 ng/mL (0.0-7.9); POC - TROPONIN 0.16 ng/mL (<=0.05)
[2016-04-06 22:55] LABS: URINE SOURCE CLEAN CATCH
[2016-04-06 23:02] LABS: URINE APPEARANCE TURBID; URINE BLOOD 1+ (NEG); URINE COLOR DK YELLOW; URINE GLUCOSE 100 MG/DL (NEG); URINE KETONE TRACE (NEG); URINE LEUKOCYTE ESTERASE 2+ (NEG); URINE NITRATE NEG (NEG); URINE PROTEIN 3+ (NEG); URINE SPECIFIC GRAVITY 1.023 (1.003-1.035); URINE UROBILINOGEN 0.2 MG/DL (NEG)
[2016-04-06 23:06] LABS: CULTURE INDICATED? YES; URINE BACTERIA AUWI 1+ (NEGATIVE); URINE SQUAMOUS EPITHELIAL CELL FEW /[HPF]; UWBCS1 AUWI INNUM (0-5)
[2016-04-06 23:27] LABS: URINE BILIRUBIN NEG (NEG)
[2016-04-07 01:15] LABS: INFLUENZA A POS (NEG); INFLUENZA B NEG (NEG)
[2016-04-07 05:18] LABS: ARTERIAL BLOOD GAS CARBOXY HB 0.1 %sat (0.0-9.0); ARTERIAL BLOOD GAS HCO3 17.9 mmol/L; ARTERIAL BLOOD GAS MET HB 0.6 %sat (0.0-2.0); ARTERIAL BLOOD GAS PCO2 24.8 mmHg (35.0-45.0); ARTERIAL BLOOD GAS pH 7.467 (7.350-7.450)
[2016-04-07 05:37] LABS: ARTERIAL BLOOD GAS ALLEN TEST NORMAL; ARTERIAL BLOOD GAS ART SITE LEFT BRACHIAL; ARTERIAL DRAW? YES
[2016-04-07 05:38] LABS: ARTERIAL BLOOD GAS VENT MODE AC
[2016-04-07 05:52] LABS: BASOPHIL% 0.3 % (0-2.5); EOSINOPHIL% 0.1 % (0.0-7.0); HEMATOCRIT 32.9 % (38.0-50.0); LYMPHOCYTE# 1.2 X10e3 (1.0-3.5); LYMPHOCYTE% 15.4 % (17.0-45.0); MEAN CELL VOLUME 102.9 FL (83-96); MEAN CORPUSCULAR HEMOGLOBIN 33.6 PG (28-34); MEAN CORPUSCULAR HGB CONC 32.7 g/dL (30-36); MEAN PLATELET VOLUME 8.4 FL (6.5-11.5); MONOCYTE# 0.6 X10e3 (0-1.0); MONOCYTE% 7.2 % (3.0-12.0); NEUTROPHIL# 6.2 X10e3 (1.5-7.1); PLATELET COUNT 101 X10e3 (140-420); RED CELL DISTRIBUTION WIDTH 15.9 % (11.0-15.5); WHITE BLOOD COUNT 8.1 X10e3 (4.0-10.5)
[2016-04-07 06:06] LABS: DIFF IND NO; HEMOGLOBIN 10.8 gm/dL (13.0-16.0)
[2016-04-07 06:52] LABS: BUN/CREATININE RATIO 5.94; CALCIUM SERUM 7.8 mg/dL (8.4-10.2); CREATININE SERUM 3.7 mg/dL (0.6-1.4); GLOM FILT RATE Estimated 16.6 mL/min (>60)
[2016-04-07 06:53] LABS: POTASSIUM 3.8 mmol/L (3.5-5.1)
[2016-04-08 05:10] LABS: ARTERIAL BLD GAS O2 SATURATION 95.6 % (90.0-100.0); ARTERIAL BLOOD GAS CARBOXY HB 0.4 %sat (0.0-9.0); ARTERIAL BLOOD GAS HCO3 16.7 mmol/L; ARTERIAL BLOOD GAS MET HB 1.1 %sat (0.0-2.0); ARTERIAL BLOOD GAS PCO2 30.6 mmHg (35.0-45.0); ARTERIAL BLOOD GAS PO2 91.7 mmHg (80.0-100); ARTERIAL BLOOD GAS pH 7.346 (7.350-7.450)
[2016-04-08 05:13] LABS: HEMATOCRIT 35.4 % (38.0-50.0); HEMOGLOBIN 11.5 gm/dL (13.0-16.0); MEAN CELL VOLUME 102.5 FL (83-96); MEAN CORPUSCULAR HEMOGLOBIN 33.4 PG (28-34); MEAN CORPUSCULAR HGB CONC 32.6 g/dL (30-36); MEAN PLATELET VOLUME 8.6 FL (6.5-11.5); RED BLOOD COUNT 3.46 X10e (3.90-5.60); RED CELL DISTRIBUTION WIDTH 16.4 % (11.0-15.5); WHITE BLOOD COUNT 6.8 X10e3 (4.0-10.5)
[2016-04-08 05:23] LABS: ARTERIAL BLOOD GAS ALLEN TEST NORMAL; ARTERIAL BLOOD GAS ART SITE LEFT BRACHIAL; ARTERIAL BLOOD GAS VENT MODE AC; ARTERIAL DRAW? YES
[2016-04-08 06:19] LABS: BUN/CREATININE RATIO 6.66; CALCIUM SERUM 8.2 mg/dL (8.4-10.2); CREATININE SERUM 5.1 mg/dL (0.6-1.4); GLOM FILT RATE Estimated 11.5 mL/min (>60); POTASSIUM 4.8 mmol/L (3.5-5.1)
[2016-04-09 04:27] LABS: ARTERIAL BLD GAS O2 SATURATION 98.1 % (90.0-100.0); ARTERIAL BLOOD GAS CARBOXY HB 0.1 %sat (0.0-9.0); ARTERIAL BLOOD GAS HCO3 26.7 mmol/L
[2016-04-09 04:37] LABS: ARTERIAL BLOOD GAS ART SITE LEFT BRACHIAL; ARTERIAL BLOOD GAS DELIVERY VENT; ARTERIAL BLOOD GAS VENT MODE AC; ARTERIAL DRAW? YES
[2016-04-09 06:10] LABS: BASOPHIL% 0.1 % (0-2.5); HEMATOCRIT 31.3 % (38.0-50.0); HEMOGLOBIN 10.3 gm/dL (13.0-16.0); LYMPHOCYTE# 0.9 X10e3 (1.0-3.5); LYMPHOCYTE% 6.6 % (17.0-45.0); MEAN CELL VOLUME 100.8 FL (83-96); MEAN CORPUSCULAR HEMOGLOBIN 33.2 PG (28-34); MEAN CORPUSCULAR HGB CONC 32.9 g/dL (30-36); MEAN PLATELET VOLUME 8.6 FL (6.5-11.5); MONOCYTE# 0.8 X10e3 (0-1.0); MONOCYTE% 6.2 % (3.0-12.0); NEUTROPHIL% 87.1 % (40-75); PLATELET COUNT 121 X10e3 (140-420); RED BLOOD COUNT 3.11 X10e (3.90-5.60); RED CELL DISTRIBUTION WIDTH 16.1 % (11.0-15.5)
[2016-04-09 06:16] LABS: DIFF IND NO; WHITE BLOOD COUNT 13.8 X10e3 (4.0-10.5)
[2016-04-09 06:50] LABS: BUN/CREATININE RATIO 7.3; CREATININE SERUM 2.6 mg/dL (0.6-1.4); GLOM FILT RATE Estimated 24.9 mL/min (>60); POTASSIUM 3.3 mmol/L (3.5-5.1)
[2016-04-10 04:08] LABS: ARTERIAL BLD GAS O2 SATURATION 98.8 % (90.0-100.0); ARTERIAL BLOOD GAS CARBOXY HB 0.1 %sat (0.0-9.0); ARTERIAL BLOOD GAS HCO3 23.1 mmol/L; ARTERIAL BLOOD GAS MET HB 0.9 %sat (0.0-2.0); ARTERIAL BLOOD GAS PCO2 28.5 mmHg (35.0-45.0); ARTERIAL BLOOD GAS pH 7.516 (7.350-7.450)
[2016-04-10 04:10] LABS: ARTERIAL BLOOD GAS ART SITE LEFT BRACHIAL; ARTERIAL BLOOD GAS DELIVERY VENT; ARTERIAL BLOOD GAS VENT MODE AC; ARTERIAL DRAW? YES
[2016-04-10 05:27] LABS: BASOPHIL% 0.2 % (0-2.5); HEMATOCRIT 32.6 % (38.0-50.0); HEMOGLOBIN 10.5 gm/dL (13.0-16.0); LYMPHOCYTE% 7.4 % (17.0-45.0); MEAN CELL VOLUME 101.4 FL (83-96); MEAN CORPUSCULAR HEMOGLOBIN 32.7 PG (28-34); MEAN CORPUSCULAR HGB CONC 32.3 g/dL (30-36); MEAN PLATELET VOLUME 8.6 FL (6.5-11.5); MONOCYTE# 0.7 X10e3 (0-1.0); MONOCYTE% 5.4 % (3.0-12.0); NEUTROPHIL# 12.1 X10e3 (1.5-7.1); PLATELET COUNT 122 X10e3 (140-420); RED BLOOD COUNT 3.21 X10e (3.90-5.60); RED CELL DISTRIBUTION WIDTH 16.7 % (11.0-15.5); WHITE BLOOD COUNT 13.9 X10e3 (4.0-10.5)
[2016-04-10 05:29] LABS: DIFF IND NO
[2016-04-10 06:20] LABS: BUN/CREATININE RATIO 9.73; CALCIUM SERUM 8.2 mg/dL (8.4-10.2); CREATININE SERUM 3.8 mg/dL (0.6-1.4); GLOM FILT RATE Estimated 16.1 mL/min (>60); MAGNESIUM 1.9 mg/dL (1.6-3.0)
[2016-04-10 12:41] LABS: ARTERIAL BLD GAS O2 SATURATION 98.1 % (90.0-100.0); ARTERIAL BLOOD GAS CARBOXY HB 0.2 %sat (0.0-9.0); ARTERIAL BLOOD GAS HCO3 23.3 mmol/L; ARTERIAL BLOOD GAS MET HB 0.8 %sat (0.0-2.0); ARTERIAL BLOOD GAS PCO2 38.9 mmHg (35.0-45.0); ARTERIAL BLOOD GAS pH 7.386 (7.350-7.450)
[2016-04-10 12:42] LABS: ARTERIAL BLOOD GAS ART SITE LEFT BRACHIAL; ARTERIAL BLOOD GAS DELIVERY VENT; ARTERIAL BLOOD GAS VENT MODE AC; ARTERIAL DRAW? YES
[2016-04-12 10:00] LABS: HEP B SURFACE AG Nonreactive (Nonreactive)
== END 2016-04-12 03:59 | disposition expired | DRG 870 ==
LOC: CED 19:16 → CEDOF 22:00 → CICCU3 23:50
PROVIDERS: Emergency Medicine; Internal Medicine; Internal Medicine Nephrology; Internal Medicine Pulmonary Disease; Nurse Practitioner
PROC: 5A1955Z Respiratory Ventilation, Greater than 96 Consecutive Hours (ICD-10-PCS; 2016-04-06)
PROC: 0BH17EZ Insertion of Endotracheal Airway into Trachea, Via Natural or Artificial Opening (ICD-10-PCS; 2016-04-06)
PROC: 5A1D00Z (ICD-10-PCS; principal; 2016-04-07)
PROC: 0DH67UZ Insertion of Feeding Device into Stomach, Via Natural or Artificial Opening (ICD-10-PCS; 2016-04-07)
PROC: B246YZZ Ultrasonography of Right and Left Heart using Other Contrast (ICD-10-PCS; 2016-04-07)
PROC: 0B9B8ZX Drainage of Left Lower Lobe Bronchus, Via Natural or Artificial Opening Endoscopic, Diagnostic (ICD-10-PCS; 2016-04-08)
PROC: 0B998ZX Drainage of Lingula Bronchus, Via Natural or Artificial Opening Endoscopic, Diagnostic (ICD-10-PCS; 2016-04-08)
PROC: 0B948ZX Drainage of Right Upper Lobe Bronchus, Via Natural or Artificial Opening Endoscopic, Diagnostic (ICD-10-PCS; 2016-04-08)
DX: A41.89 Other specified sepsis (principal); R65.21 Severe sepsis with septic shock; J96.01 Acute respiratory failure with hypoxia; J11.00 Influenza due to unidentified influenza virus with unspecified type of pneumonia; I47.2 Ventricular tachycardia; N18.6 End stage renal disease; D69.6 Thrombocytopenia, unspecified; I13.11 Hypertensive heart and chronic kidney disease without heart failure, with stage 5 chronic kidney disease, or end stage renal disease; N39.0 Urinary tract infection, site not specified; Z99.2 Dependence on renal dialysis; Z95.1 Presence of aortocoronary bypass graft; Z95.5 Presence of coronary angioplasty implant and graft; I48.0 Paroxysmal atrial fibrillation; Z79.82 Long term (current) use of aspirin; Z79.02 Long term (current) use of antithrombotics/antiplatelets; Z95.2 Presence of prosthetic heart valve; Z66 Do not resuscitate; Z51.5 Encounter for palliative care; I25.10 Atherosclerotic heart disease of native coronary artery without angina pectoris; E87.5 Hyperkalemia; I35.0 Nonrheumatic aortic (valve) stenosis; D64.9 Anemia, unspecified
CPT/HCPCS: 36600; 51702; 71010; 74000; 80048; 80076; 80202; 81003; 82553; 82803; 82947; 83605; 83735; 83880; 84484; 85025; 85027; 85610; 85730; 87040; 87070; 87086; 87102; 87106; 87116; 87205; 87206; 87340; 87449; 87804; 87899; 88108; 88305; 93005; 93306; 93971; 94002; 94003; 94640; 94660; 94760; 94761; 96365; 96366; 96368; 96375; 99291; C9113; J0171; J0282; J0330; J1644; J1940; J1956; J2060; J2250; J2270; J2370; J2543; J2765; J2920; J3010; J3370; J3490